=== PATIENT | female | born 1985 | race Caucasian/White ===

== ENCOUNTER 2024-06-09 12:16 | Emergency (ER) | payer MEDICAID, SELFPAY ==
[2024-06-09 12:16] VITALS: BP 129/92; PULSE 99; RESP 16; TEMP 36.3; O2SAT 100; BMI 29.2
[2024-06-09 12:21] VITALS: O2SAT 97
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
== END 2024-06-09 12:39 | disposition home or self-care (01) ==
PROVIDERS: Emergency Provider Emergency Medicine; PCP Registered Nurse; Visit Provider Emergency Medicine
DX: S16.1XXA Strain of muscle, fascia and tendon at neck level, initial encounter (principal); Z87.891 Personal history of nicotine dependence; V49.50XA Passenger injured in collision with unspecified motor vehicles in traffic accident, initial encounter; Y92.488 Other paved roadways as the place of occurrence of the external cause; E03.9 Hypothyroidism, unspecified; Z79.899 Other long term (current) drug therapy; Z90.49 Acquired absence of other specified parts of digestive tract
CPT/HCPCS: 99282

== ENCOUNTER 2025-09-02 17:49 | Emergency (ER) | payer MEDICAID, SELFPAY ==
[2025-09-02 17:50] VITALS: BP 166/98; PULSE 81; RESP 16; TEMP 36.6; O2SAT 100; BMI 29.9
--- NOTE | 2025-09-02 18:04 | EDS_ITS ---
HPI History of Present Illness Chief Complaint: Bite Narrative Narrative: Patient is a 39-year-old female presenting to the emergency department for dog bite. Patient has no significant past medical history. She states that she was trying to break up her 2 dogs that were fighting when one of them bit her left hand. She is right-hand dominant. She states that her last tetanus vaccine was in the last 10 years. She reports that her dogs are up-to-date on vaccines including rabies. She denies any other injuries. [facility] Medical History Anxiety Depression Positive VINAYAK (antinuclear antibody) Non-celiac gluten sensitivity Hypothyroidism Home Medications ?Medication ?Instructions ?Recorded ?Last Taken ?Type amoxicillin 875 mg-potassium 1 tab PO BID 7 days #14 t abs 09/02/25 Unknown Rx clavulanate 125 mg tablet cetirizine 10 mg tablet 10 mg PO DAILY 09/02/2510/27 History cholecalciferol (vitamin D3) 50 50 mcg PO DAILY 09/02/25 History mcg (2,000 unit) capsule fluoxetine 40 mg capsule 40 mg PO DAILY 09/02/2510/27 History fluticasone propionate 50 2 spray intranasal DAILY 10/27 Unknown History mcg/actuation nasal spray,suspension thyroid (pork) 15 mg tablet 15 mg PO DAILY 09/02/25 Un known History ([place] Thyroid) Allergy/AdvReac Type Severity Reaction Status Date / Time Penicillins Allergy Mild Hives Verified 09/02/25 17:51 quetiapine (From Seroquel) AdvReac Severe Rash Verified 09/02/25 17:51 Family History Mother Depression Anxiety Diabetes CVA (cerebral vascular accident) Father Alcoholism Heart disease Myocardial infarction Thyroid disorder Graves disease Multiple sclerosis Brother Heart disease Sister Epilepsy Grandmother CVA (cerebral vascular accident) Surgical History Hx laparoscopic cholecystectomy Social History Smoking Status: Former smoker alcohol intake: never substance use type: does not use what type of physical activity do you participate in: none ROS ROS ED ROS Narrative See HPI EXAM Physical Exam Narrative Exam Narrative: Vital signs: Reviewed General: Alert and oriented x 3. No acute distress. Well-appearing, nontoxic HEENT: Head is normocephalic and atraumatic, sinuses nontender, pupils equal round and reactive. Nares are patent. Oropharynx and throat exams normal. Neck: Supple without lymphadenopathy nontender Cardiovascular: Regular rate and rhythm, no murmurs. No rubs or gallops. Normal S1 and S2 Respiratory: Clear to auscultation bilaterally. No wheezes, rales, rhonchi Abdominal: Soft and nontender. Normal bowel sounds. No guarding or rebound. Nonsurgical abdomen Extremities: Left radial pulse intact. Sensation and motor intact in radial, median and ulnar distributions. No tenderness. No bruising. Skin: There are 2 small puncture wounds between the 1st and second digits on the dorsal side on the lower portion of the base of the second digit. There is a sm all puncture wound to the base of the third metacarpal on the ulnar side. There is no obvious foreign body on wound exploration. There is no active bleeding. Patient able to flex and extend at all joints. The rest of the physical exam is unremarkable Const Vital Signs: 09/02/25 17:50 09/02/25 18:57 Temperature 97.8 F 97.8 F Temperature Source Temporal Pulse Rate 81 81 Respiratory Rate 16 16 Blood Pressure 166/98 H 130/70 H Blood Pressure Mean 120 90 Pulse Ox 100 100 Oxygen Delivery Method Room Air MDM MDM MDM Narrative Medical decision making narrative: Patient is a 39-year-old female presenting to the emergency department for a dog bite. Patient was seen and examined. Vitals are stable. Patient resting in bed comfortably in no acute distress. Patient's tetanus vaccine is up-to-date. She was asked to thoroughly irrigate the wounds under the sink for 10 to 15 minutes. They are all puncture wounds. They do not require laceration repair especially since they are dog bites. She was given first dose of Augmentin here. Has a listed allergy to penicillins of hives but states this was when she was younger. She had no airway involvement. She was open to trying Augmentin here and being observed. She tolerated Augmentin well. X-ray imaging will be ordered to rule out any radiopaque foreign body. Reviewed by myself, no fractures or foreign body seen. Radiology read in agreement. The dogs are the patient's and they are up-to-date on the rabies vaccine I discussed no indication for rabies vaccine or immunoglobulin with the patient and she understands and is agreeable. I discussed wound care with the patient extensively including keeping the wound clean and dry. Recommended keeping it covered for the next 24 to 48 hours. Will prescribe Augmentin for home. Patient discharged from the Emergency Department. I do not feel that the patient's evaluation reveals any acute reason for admission at this time. I instructed them to either follow-up with their primary care physician or promptly return to the Emergency Department for reevaluation should symptoms worsen or new symptoms develop. I explained what symptoms would in dicate the need to return to the emergency department. Shared decision making was used. The patient voiced understanding of the treatment plan and is agreeable with it. Clinical impression Dog bite History & Record Review Discussion w/independent historian: Patient Radiography X-Ray: Read by ED Physician, Normal and No Fracture Diagnostic Testing: Clinical Impression(s) from Imaging Studies Hand X-Ray 09/02/25 18:20 IMPRESSION: No acute fracture or dislocation. No radiopaque foreign body. Reading Location: [facility] Discharge Plan Triage Chief Complaint: Bite ED Provider: Lindsay Araujo Dx/Rx/DC Orders Clinical Impression: Dog bite Instructions: ED Dog Bite Prescriptions: New amoxicillin-pot clavulanate 875-125 mg tablet 1 tab PO BID 7 Days Qty: 14 0RF No Action fluoxetine 40 mg capsule 40 mg PO DAILY cetirizine 10 mg tablet 10 mg PO DAILY fluticasone propionate 50 mcg/actuation spray,suspension 2 spray INTRANASAL DAILY cholecalciferol (vitamin D3) 50 mcg (2,000 unit) capsule 50 mcg PO DAILY thyroid (pork) [[place] Thyroid] 15 mg tablet 15 mg PO DAILY Primary Care Provider: Alison Gonzalez NP Referrals: Alison Gonzalez NP, [facility] [Primary Care Provider, Medical] - As soon as possible Activity Restrictions/Additional Instructions: Take the antibiotic twice daily for 7 days. Keep the wounds clean and dry patient. Watch for signs of infection which will include redness, drainage, warmth or swelling. Discharged from the Emergency Department. I do not feel that the patient's evaluation reveals any acute reason for admission at this time. I instructed them to either follow-up with their primary care physician or promptly return to the Emergency Department for reevaluation should symptoms worsen or new symptoms develop. I explained what symptoms would indicate the need to return to the emergency department. Shared decision making was used. The patient voiced understanding of the treatment plan and is agreeable with it. Print Language: Slovak Disposition Disposition: Home, Self Care Discharge Date/Time: 09/02/25 19:07
--- NOTE | 2025-09-02 18:20 | RAD_ITS ---
PROCEDURE: HAND MIN 3 VIEWS 09/02/2025 REASON FOR EXAM: DOG BITE TECHNIQUE: Procedure Code: NOE Modality: DX Procedure: HAND MIN 3 VIEWS Laterality: Left COMPARISON: None. FINDINGS: No acute fracture or dislocation. Alignment is anatomic. Preserved joint spaces. No aggressive osseous lesion. No appreciable soft tissue swelling, air, or radiopaque foreign body. RAD/Hand Min 3 Views IMPRESSION: No acute fracture or dislocation. No radiopaque foreign body. Reading Location: [id number]
[2025-09-02 18:57] VITALS: BP 130/70; PULSE 81; RESP 16; TEMP 36.6; O2SAT 100
== END 2025-09-02 19:07 | disposition home or self-care (01) ==
PROVIDERS: Emergency Provider Student in an Organized Health Care Education/Training Program; PCP Registered Nurse; Visit Provider Student in an Organized Health Care Education/Training Program
DX: S61.452A Open bite of left hand, initial encounter (principal); Z87.891 Personal history of nicotine dependence; E03.9 Hypothyroidism, unspecified; F32.A Depression, unspecified; F41.9 Anxiety disorder, unspecified; Z90.49 Acquired absence of other specified parts of digestive tract; W54.0XXA Bitten by dog, initial encounter
CPT/HCPCS: 73130; 99282